=== PATIENT | female | born 1995 | race Caucasian/White ===

== ENCOUNTER 2018-07-01 10:54 | Emergency (ER) | payer SELFPAY ==
--- NOTE | 2018-07-01 11:21 | ED ---
HPI Chest Pain - HPI Summary HPI Summary: 23 yr old with the complaint of chest pain, SOB, dizziness, blur vision, anxiety , left hand numbness. 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 She has had prior anxiety in the past. She feels very scared as well. Denies syncope. She has a family history of PE. - History of Current Complaint Chief Complaint: UCGeneralIllness Time Seen by Provider: 07/01/18 11:15 Hx Last Menstrual Period: 05/28/18 Pain Intensity: 0 - Allergy/Home Medications Allergies/Adverse Reactions: Allergies Allergy/AdvReac Type Severity Reaction Status Date / Time sulfamethoxazole Allergy Rash Verified 07/01/18 11:00 [From Bactrim] trimethoprim [From Bactrim] Allergy Rash Verified 07/01/18 11:00 Home Medications: Home Medications SUMAtriptan TAB* [Imitrex TAB*] 25 mg PO SEE INSTRUCTIONS PRN 07/01/18 [History Confirmed 07/01/18] PMH/Surg Hx/FS Hx/Imm Hx Infectious Disease History: No Infectious Disease History: Denies: Traveled Outside the [place] in Last 30 Days - Family History Family History: PE - Social History Occupation: Employed Full-time Lives: With Family Alcohol Use: Rare Substance Use Type: Reports: None Smoking Status (MU): Current Some Day Smoker Type: Cigars Review of Systems Constitutional: Negative Positive: Chest Pain Positive: Shortness Of Breath Positive: Anxious All Other Systems Reviewed And Are Negative: Yes Physical Exam Triage Information Reviewed: Yes Vital Signs On Initial Exam: Initial Vitals Temp Pulse Resp BP Pulse Ox 99 F 116 16 112/68 100 07/01/18 10:58 07/01/18 10:58 07/01/18 10:58 07/01/18 10:58 07/01/18 10:58 Vital Signs Reviewed: Yes Appearance: Positive: Well-Appearing, No Pain Distress Skin: Positive: Warm Eyes: Positive: EOMI ENT: Positive: Pharynx normal Neck: Positive: Nontender Respiratory/Lung Sounds: Positive: Clear to Auscultation, Breath Sounds Present Cardiovascular: Positive: RRR. Negative: Murmur Abdomen Description: Negative: Distended Musculoskeletal: Positive: Strength/ROM Intact Neurological: Positive: Sensory/Motor Intact, Alert, Oriented to Person Place, Time, CN Intact II-III, Normal Gait. Negative: Speech Normal Psychiatric: Positive: Normal Diagnostics - Vital Signs Vital Signs Temp Pulse Resp BP Pulse Ox 07/01/18 10:58 99 F 116 16 112/68 100 - Laboratory Lab Statement: Any lab studies that have been ordered have been reviewed, and results considered in the medical decision making process. Chest Pain Course/Dx - Course Course Of Treatment: 23 yr old female with anxiety, chest pain, sob. DW Dr Live, and she is going to [facility]. - Diagnoses Provider Diagnoses: Chest pain, Anxiety Discharge - Sign-Out/Discharge Documenting (check all that apply): Patient Departure All imaging exams completed and their final reports reviewed: No Studies - Discharge Plan Condition: Good Disposition: TRANS HIGHER LVL OF CARE FAC - Billing Disposition and Condition Condition: GOOD Disposition: Trans Higher Lvl of Care Fac
[2018-07-01 11:33] VITALS: BP 133/83
== END 2018-07-01 11:33 | disposition short-term general hospital (02) ==
LOC: UCCORT 10:54
DX: R07.9 Chest pain, unspecified (principal); F41.9 Anxiety disorder, unspecified; R06.02 Shortness of breath; R42 Dizziness and giddiness; H53.8 Other visual disturbances; R20.0 Anesthesia of skin; F17.210 Nicotine dependence, cigarettes, uncomplicated; Z88.2 Allergy status to sulfonamides
CPT/HCPCS: 93005; 99203; G0463